=== PATIENT | female | born 1980 | race Caucasian/White ===

== ENCOUNTER 2016-05-27 15:37 | Emergency (ER) | payer MEDICAID | END 2016-05-27 18:00 | disposition home or self-care (01) | LOC: D.ER 15:37 | DX: M54.2 Cervicalgia (principal); M25.552 Pain in left hip; M25.551 Pain in right hip; B20 Human immunodeficiency virus [HIV] disease ==

== ENCOUNTER 2017-02-21 22:07 | Emergency (ER) | payer MEDICAID | END 2017-02-21 23:37 | disposition home or self-care (01) | LOC: D.ER 22:07 | DX: M54.5 Low back pain (principal); B20 Human immunodeficiency virus [HIV] disease ==

== ENCOUNTER 2017-03-09 14:05 | Emergency (ER) | payer MEDICAID | END 2017-03-09 15:54 | disposition home or self-care (01) | LOC: D.ER 14:05 | DX: M54.30 Sciatica, unspecified side (principal); S39.012A Strain of muscle, fascia and tendon of lower back, initial encounter; X58.XXXA Exposure to other specified factors, initial encounter; Y93.89 Activity, other specified; Y92.019 Unspecified place in single-family (private) house as the place of occurrence of the external cause; B20 Human immunodeficiency virus [HIV] disease; F17.200 Nicotine dependence, unspecified, uncomplicated ==